=== PATIENT | female | born 1955 | race Caucasian/White ===

== ENCOUNTER 2017-04-21 23:15 | Emergency (ER) | payer OTHER ==
[~2017-04-21] VITALS: Ht 160 cm; Wt 52.3 kg
[2017-04-21 23:53] LABS: HEMATOCRIT 42.9 % (36.0-46.0); MCH 31.8 PG (29.0-34.0); MCHC 34.7 G/DL (30.0-36.0); MCV 91.5 FL (83-99); PLATELET COUNT 200 K/uL (156-360); RBC DIS.WIDTH-CV 12.8 % (11.8-14.6); RBC DIS.WIDTH-SD 42.8 % (39-53); RED BLOOD COUNT 4.69 M/uL (3.80-5.20); WHITE BLOOD COUNT 10.2 K/uL (4.1-10.2)
[2017-04-22 00:16] LABS: CHLORIDE 107 mEq/L (99-109); POTASSIUM 3.7 mEq/L (3.7-5.4); SODIUM 143 mEq/L (136-147)
[2017-04-22 00:18] LABS: GLUCOSE 95 mg/dL (70-99)
[2017-04-22 00:19] LABS: ANION GAP 12 MEQ/L (2-14)
[2017-04-22 00:21] LABS: GFR ESTIMATE (CALCULATED) > 59 mL/min/
[2017-04-22 00:22] LABS: UREA NITROGEN (BUN) 25 mg/dL (9-23)
[2017-04-22 00:27] LABS: TROP-I INTERPRETATION NEGATIVE; TROPONIN-I < 0.01 ng/mL (0.0-0.30)
[2017-04-22 02:36] LABS: TOTAL BILIRUBIN 0.3 mg/dL (0.0-1.0)
[2017-04-22 02:37] LABS: ALKALINE PHOSPHATASE 52 IU/L (3-129)
[2017-04-22 02:39] LABS: DIRECT BILIRUBIN 0.1 mg/dL (0.0-0.3)
[2017-04-22 02:40] LABS: LIPASE 11 U/L (1.0-51.0)
[2017-04-22 03:15] LABS: TROP-I INTERPRETATION NEGATIVE; TROPONIN-I < 0.01 ng/mL (0.0-0.30)
[2017-04-22 04:25] VITALS: BP 157/96
== END 2017-04-22 04:26 | disposition home or self-care (01) ==
LOC: EME 23:15
PROVIDERS: Emergency Medicine
DX: R07.9 Chest pain, unspecified (principal); I10 Essential (primary) hypertension; Z88.0 Allergy status to penicillin; F17.200 Nicotine dependence, unspecified, uncomplicated
CPT/HCPCS: 71020; 80048; 80076; 83690; 84484; 85027; 93005; 99281; 99284